=== PATIENT | male | born 1965 | race Caucasian/White ===

== ENCOUNTER 2021-03-13 11:48 | Emergency (ER) | payer OTHER, BC, SELFPAY ==
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
[2021-03-13 12:28] VITALS: BP 116/69; PULSE 65; RESP 18; TEMP 36.3; O2SAT 96; BMI 26.5
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
[2021-03-13] MEDS: Ibuprofen 600 MG TABLET PO (15:36)
== END 2021-03-13 17:30 | disposition home or self-care (01) ==
PROVIDERS: Emergency Provider Emergency Medicine; PCP Internal Medicine
DX: S16.1XXA Strain of muscle, fascia and tendon at neck level, initial encounter (principal); S29.012A Strain of muscle and tendon of back wall of thorax, initial encounter; V89.2XXA Person injured in unspecified motor-vehicle accident, traffic, initial encounter; Y93.9 Activity, unspecified; Y92.410 Unspecified street and highway as the place of occurrence of the external cause; Y99.9 Unspecified external cause status
CPT/HCPCS: 70450; 72125; 99283; 99284